=== PATIENT | female | born 1990 | race Caucasian/White ===

== ENCOUNTER 2018-08-07 14:36 | Day surgery (SDC) | payer BC ==
[2018-08-07 15:22] VITALS: BMI 25.3
[2018-08-07] MEDS ORDERED: Lactated Ringer's 1,000 ML IV SCH (15:45)
--- NOTE | 2018-08-07 15:45 | PDOC.EVN ---
Event Note - Event Note Event Note: H&P dictated as well
--- NOTE | 2018-08-07 16:40 | HP ---
TIME OF EVALUATION: 1520 hours. LOCATION: Labor and Delivery triage in bed A. CHIEF COMPLAINT: Shortness of breath. This is a patient of Dr. Lora. The patient has a full H and P that is hand written in the physical chart and so this dictation is actually ancillary/secondary. The patient was not evaluated in the ER since they are at capacity, so no tests have been done for shortness of breath as of yet. HISTORY OF PRESENT ILLNESS: This is a 28-year-old G2, P0, with an elective AB x1 in the past with an EDC of 09/14, makes her now 34 weeks and 4 days, here for shortness of breath x3 weeks. She states that she had a cold in the past and that her shortness of breath has increased since that time. She denies fever or sputum production. She denies chills or bloody hemoptysis. She denies sick contacts or trauma. REVIEW OF SYSTEMS: Complete review of systems was checked and is otherwise negative unless specified in the HPI. As part of review of systems, I checked when her last exam was and she was last checked by Dr. Lora on when the patient complained of similar symptoms. Dr. Lora checked a pulse ox and it was greater than 97%. She was told that symptoms were likely attributable to normal . No testing was done at that time. PAST MEDICAL HISTORY: The patient has a history of supraventricular tachycardia at age 23, but this was treated in [place] with a "surgery." She has had no symptoms since and does not follow up with Cardiology for this. PAST SURGICAL HISTORY: Significant for this treatment of this arrhythmia as previously dictated. It sounds like this was an electrophysiological procedure. ALLERGIES: QUESTIONABLE ALLERGY TO CONTRAST, BUT IS UNCLEAR IF THIS IS TRUE SHE CAN EAT SHELLFISH. OB HISTORY: She is a G2, P0. MEDICATIONS: In use are vitamins. PHYSICAL EXAMINATION: VITAL SIGNS: Shows a temperature of 98.1, respiratory rate of 18, blood pressure 106/72, and a pulse of 80. GENERAL: Clinically, she is in no acute distress with respirations not labored. She is resting in bed quite comfortably. ABDOMEN: Soft and nontender. CERVICAL: Currently deferred at this time, and she does not complain of any contractions. On monitor, she has a category 1 strip with some uterine irritability. ASSESSMENT: This is a G2, P0, at 34 weeks and 4 days with likely dyspnea of . She has had this shortness of breath for weeks, so this is not acute. PLAN: 1. I have seen the patient at bedside and reviewed the following. 2. I will order a chest x-ray at screening. 3. I will order 1 L LR for conservative management. 4. Cervical check. 5. We will place pulse ox, which has been done and her pulse ox here is 99% on room air. 6. Just to make sure we are not missing any other pathology, I have ordered a bilateral lower extremity Doppler to confirm venous patency and I have explained this to the patient. Job ID: [id number]
--- NOTE | 2018-08-07 16:41 | ULT ---
BILATERAL LOWER EXTREMITY VENOUS DOPPLER ULTRASOUND EVALUATION: 08/07/18 HISTORY: Shortness of breath. Respiratory distress. Evaluate for deep venous thrombosis. Multiple longitudinal and transverse images of the right and left lower extremity venous system was o btained using a multihertz linear array transducer. Real time, color flow, and spectral waveform Dop pler analysis demonstrates no evidence of acute or old clot seen in the right or left common femoral, superficial femoral, femora profunda, popliteal, posterior tibial vein and right and left greater sa phenous veins. IMPRESSION: No evidence of right or left lower extremity deep venous thrombosis. POS: KIRSTEN
--- NOTE | 2018-08-07 16:51 | PDOC.EVN ---
Event Note - Event Note Event Note: DVT doppler eval: negative bilaterally LE
--- NOTE | 2018-08-07 17:35 | RAD ---
EXAM: CHEST ONE VIEW HISTORY: Shortness of breath COMPARISON: 07/25/2010 FINDINGS: The cardiac silhouette and pulmonary vasculature is within normal limits. The lungs are clear. The os seous structures are intact. Chest is stable from prior study. IMPRESSION: No acute cardiopulmonary process.
--- NOTE | 2018-08-07 18:17 | PDOC.EVN ---
Event Note - Event Note Event Note: CXR negative
--- NOTE | 2018-08-07 18:54 | PDOC.EVN ---
Event Note - Event Note Event Note: All work up is negative and clinically, patient is in NAD Pulse Ox 99% on RA CXR neg Bilaterally, lower extremity doppler is neg OK for outpatient care DX: discomforts of preg/dyspnea of
== END 2018-08-07 19:04 | disposition home or self-care (01) ==
LOC: L&D/OP 14:36
PROVIDERS: ATTEND Student in an Organized Health Care Education/Training Program
DX: O99.89 Other specified diseases and conditions complicating pregnancy, childbirth and the puerperium (principal); R06.02 Shortness of breath; Z3A.34 34 weeks gestation of pregnancy; Z79.899 Other long term (current) drug therapy
CPT/HCPCS: 71045; 93970; 96360; 96361; 99283

== ENCOUNTER 2018-08-22 13:11 | Day surgery (SDC) | payer BC ==
[2018-08-22 13:43] VITALS: BMI 26.2
--- NOTE | 2018-08-22 15:28 | PRG ---
DATE OF SERVICE: 08/22/2018 TIME OF SERVICE: 14:50. PRESENTING COMPLAINT: Contractions for 1 hour at 37 weeks. HISTORY OF PRESENT ILLNESS: Ms. Anand is a 28-year-old 2, para 0, who sees Dr. Hannah Lora at [facility]. She has an ANTHONY of 09/14. She reports she has been having contractions for approximately an hour. She denies rupture of membranes, vaginal bleeding, and reports an active fetus. 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 Blood type O positive, antibody negative. Pap negative. Rubella immune. VDRL nonreactive. Hepatitis B, GC, chlamydia negative. Group B strep negative. The patient has had an uncomplicated antepartum course. PAST MEDICAL HISTORY: History of cardiac ablation. PAST SURGICAL HISTORY: Cardiac ablation procedure. ALLERGIES: IODINATED CONTRAST. MEDICATIONS: vitamins. SOCIAL HISTORY: Denies tobacco, alcohol, or drug abuse. FAMILY HISTORY: Noncontributory. REVIEW OF SYSTEMS: Noncontributory. PHYSICAL EXAMINATION: GENERAL: White female in no acute distress. VITAL SIGNS: Temperature 98.7, pulse 79, respirations 18, blood pressure 125/74. HEENT: Within normal limits. LUNGS: Clear to auscultation bilaterally. HEART: Regular rate and rhythm. ABDOMEN: Soft and nontender with indelible contractions. FHTs 140s. VULVA: Without lesions. VAGINA: Without discharge. CERVIX: Fingertip, soft, and posterior cephalic presentation long. EXTREMITIES: Without clubbing, cyanosis, or edema. monitoring is carried out for greater than 1 hour. Category I heart rate tracing without decelerations noted with a baseline of 130s to 140s. Contractions q.5 to 7 minutes were noted. A cervical exam was repeated after 1 hour was noted to be unchanged. IMPRESSION: Prodromal labor. No evidence of active labor. Reassuring heart rate status. PLAN: Discharge home. Keep scheduled followup on with Dr. Lora. SHELLY valencia. Job ID: [id number]
== END 2018-08-22 15:10 | disposition home health service (06) ==
LOC: L&D/OP 13:11
PROVIDERS: ATTEND Student in an Organized Health Care Education/Training Program
DX: O47.1 False labor at or after 37 completed weeks of gestation (principal); Z3A.37 37 weeks gestation of pregnancy; Z79.899 Other long term (current) drug therapy; Z98.890 Other specified postprocedural states
CPT/HCPCS: 99282

== ENCOUNTER 2018-09-12 21:00 | Inpatient (IN) | payer BC ==
[~2018-09-12 21:00] MED LIST: Bupivacaine/Epinephrine 0.25% 30 ML VIAL ONE
[2018-09-12] MEDS ORDERED: Lidocaine 1% (PF) 30 ML VIAL SC PRN (22:18)
[2018-09-12] MEDS ORDERED: Methylergonovine 0.2 MG/ML VIAL IM PRN (22:18)
[2018-09-12] MEDS ORDERED: Zolpidem Tartrate 5 MG TAB PO PRN (22:18)
[2018-09-12] MEDS ORDERED: Promethazine HCl 25 MG/ML VIAL IM PRN (22:18)
[2018-09-12] MEDS ORDERED: Ondansetron PF 4 MG/2 ML Vial IVP PRN (22:18)
[2018-09-12] MEDS ORDERED: Diphenoxylate HCl/Atropine Tablet PO PRN (22:18)
[2018-09-12] MEDS ORDERED: Acetaminophen 500 MG TAB PO PRN (22:18)
[2018-09-12] MEDS ORDERED: Ibuprofen 800 MG TAB PO PRN (22:18)
[2018-09-12] MEDS ORDERED: HYDROcodone/Acetaminophen 5/325 mg Tablet PO PRN (22:18)
[2018-09-12] MEDS ORDERED: Carboprost 250 MCG/ML AMP IM PRN (22:18)
[2018-09-12] MEDS ORDERED: NS w/ Oxytocin 10 units 500 ML IV SCH (22:30)
[2018-09-12 23:06] VITALS: BMI 26.6
[2018-09-12] MEDS: Misoprostol 100 MCG TAB VAG SCH (23:48)
[2018-09-12 23:50] LABS: Hemoglobin 11.8 g/dL (12.0-16.0); Mean Corpuscular HGB CONC 34.8 g/dL (32.0-36.0); Mean Corpuscular Hemoglobin 32.7 pg (27.0-31.0); Mean Corpuscular Volume 93.8 fL (78.0-98.0); Mean Platelet Volume 9.2 fL (7.4-10.4); Platelet Count 197 thou/uL (130-400); RBC Distribution Width 12.6 % (11.5-14.5); Red Blood Cell (RBC) Count 3.62 mill/uL (4.20-5.40); White Blood Cell (WBC) Count 12.7 thou/uL (4.8-10.8)
[2018-09-12] MEDS: Lactated Ringer's 1,000 ML IV SCH (23:52)
[2018-09-13 00:26] LABS: Syphilis Antibody Nonreactive (Nonreactive); Syphilis Antibody Index 0.03 S/CO (<1.00 Non-Reactive)
[2018-09-13 01:59] LABS: HBSAg Index 0.26 S/CO (0-0.99); Hep B Surf Ag Non-Reactive S/CO (NonReactive)
[2018-09-13] MEDS: Butorphanol Tartrate 1 MG/ML VIAL SLOW IVP PRN ×2 (02:19→04:05)
[2018-09-13] MEDS: Lactated Ringer's 1,000 ML IV SCH (04:11)
[2018-09-13] MEDS ORDERED: Fentanyl 4 mcg/Bup 0.1% Cadd 100 ML ONE (04:35)
--- NOTE | 2018-09-13 08:00 | PDOC.LDHP ---
Labor and Delivery H&P Chief complaint: scheduled induction HPI: 28yo at 39w6d by LMP for elective IOL. s/p cytotec x1 overnight and went into labor thereafter spontaneously. Current gestational age (weeks): 39 Due date: 09/14/18 Dating criteria: last menstrual period Grav: 1 Para: 0 Current complications: none Abnormal US findings: No Past Medical History: hx of SVT s/p ablation Current medications: pre-nilo vitamins Previous surgical history: other (heart ablation) Allergies/Adverse Reactions: Allergies Allergy/AdvReac Type Severity Reaction Status Date / Time No Known Allergies Allergy Verified 09/12/18 22:59 Social history: none - Physical Exam Vital signs reviewed and normal: yes General: NAD Heart: RRR Lungs: CTAB Abdomen: gravid Extremeties: no edema FHT: category 1 [place] contractions every: 3min - Vaginal Exam cm dilated: 10 Effacement: 100% Station: 3+ - OB Labs Blood type: O RH: positive Antibody Screen: negative HIV: negative RPR: negative HEPSAg: negative 1 hour GCT: negative GBS: negative Urine drug screen: negative Rubella: immune - Assessment L&D Assessment: elective induction at term - Plan Plan: admit to L&D, labor augmentation if indicated, informed consent obtained, anesthesia consult for pain management
--- NOTE | 2018-09-13 08:02 | PDOC.OPDEL ---
OB Operative/Delivery Note Delivery Dr/Surgeon: Geno Assist: n/a Pre-Delivery Diagnosis: elective induction Procedure/Post Delivery Dx: spontaneous vaginal delivery Weeks gestation: 39 Anesthesia: epidural - Findings A Sex: male - 1 min: 9 - 5 min: 9 - Additional Findings/Plan Placenta delivered: spontaneous Repaired Obstetrical Laceration: 1st degree (repaired with 2-0 vicryl for hemostasis) Estimated blood loss: 50cc Post delivery plan: routine recovery
[2018-09-13] MEDS: NS / Oxytocin 40 units/1000ml 1,000 ML IV PRN ×2 (09:03→09:04)
[2018-09-13] MEDS ORDERED: diphenhydrAMINE 25 MG CAP PO PRN (09:34)
[2018-09-13] MEDS ORDERED: Benzocaine-Menthol 82.5 ML CAN TOP PRN (09:34)
[2018-09-13] MEDS ORDERED: NS / Oxytocin 40 units/1000ml 1,000 ML IV SCH (09:34)
[2018-09-13] MEDS ORDERED: Milk Of Magnesia 30 ML UDCUP PO PRN (09:34)
[2018-09-13] MEDS ORDERED: Preparation H Ointment 28 GM TUBE PR PRN (09:34)
[2018-09-13] MEDS ORDERED: Bisacodyl 10 MG SUPP PR PRN (09:34)
[2018-09-13] MEDS ORDERED: Ondansetron PF 4 MG/2 ML Vial IVP PRN (09:34)
[2018-09-13] MEDS ORDERED: HYDROcodone/Acetaminophen 5/325 mg Tablet PO PRN (09:34)
[2018-09-13] MEDS ORDERED: Lanolin Ointment 7 GM TUBE TOP PRN (09:34)
[2018-09-13] MEDS ORDERED: Adacel (T-DAP) 0.5 ML SYRINGE IM ONE (09:34)
[2018-09-13] MEDS ORDERED: Prenatal Vitamin 1 TAB PO SCH (09:45)
[2018-09-13] MEDS ORDERED: Ferrous Sulfate 325 MG TAB PO SCH (09:45)
[2018-09-13] MEDS ORDERED: Docusate Calcium (SURFAK) 240 MG CAP PO SCH (09:45)
[2018-09-13] MEDS: Misoprostol 100 MCG TAB VAG SCH (11:05)
[2018-09-13] MEDS: Ibuprofen 800 MG TAB PO SCH ×2 (14:42→21:15)
[2018-09-13] MEDS: Ferrous Sulfate 325 MG TAB PO SCH (17:16)
[2018-09-13] MEDS: Docusate Calcium (SURFAK) 240 MG CAP PO SCH (21:15)
[2018-09-14] MEDS: HYDROcodone/Acetaminophen 5/325 mg Tablet PO PRN ×2 (01:57→14:14)
[2018-09-14] MEDS: Ibuprofen 800 MG TAB PO SCH ×3 (05:16→21:12)
--- NOTE | 2018-09-14 08:10 | PDOC.PP ---
Post Progress Note Post Day #: 1 Subjective: No concerns. Breast feeding. Minimal lochia and pain. PO intake tolerated: yes Flatus: yes Ambulation: yes Vital Signs (12 hours) Temp Pulse Resp BP Pulse Ox 09/14/18 07:43 97.7 F 68 20 119/77 98 09/14/18 05:15 97.8 F 60 16 115/61 09/14/18 02:00 97.9 F 60 16 113/75 09/13/18 20:25 98.3 F 63 18 121/75 97 Weight Weight 170 lb - Physical Examination General: NAD Cardiovascular: RRR Respiratory: non-labored breathing Abdominal: no distention, appropriately TTP Fundus firm & at: below umbilicus Extremities: negative homans (B) Neurological: no gross focal deficits Psychiatric: A&Ox3, normal affect Result Diagrams: 09/12/18 23:37 Additional Labs: Post Labs Blood Type O POSITIVE 09/13/18 00:24 Hep Bs Antigen Non-Reactive S/CO (NonReactive) 09/12/18 23:37 (1) Vaginal delivery Code(s): O80 - ENCOUNTER FOR FULL-TERM UNCOMPLICATED DELIVERY Status: Acute - Assessment/Plan PPD1 VSSAF Continue PP care. Plan for d/c tomorrow.
[2018-09-14] MEDS: Ferrous Sulfate 325 MG TAB PO SCH ×2 (09:28→16:09)
[2018-09-14] MEDS: Prenatal Vitamin 1 TAB PO SCH (09:29)
[2018-09-14] MEDS: Docusate Calcium (SURFAK) 240 MG CAP PO SCH ×2 (09:29→21:12)
[2018-09-15] MEDS: Ibuprofen 800 MG TAB PO SCH (04:54)
[2018-09-15] MEDS: HYDROcodone/Acetaminophen 5/325 mg Tablet PO PRN (04:54)
[2018-09-15 07:42] VITALS: TEMP 98.2
[2018-09-15] MEDS: Ferrous Sulfate 325 MG TAB PO SCH (08:02)
[2018-09-15] MEDS: Docusate Calcium (SURFAK) 240 MG CAP PO SCH (08:03)
[2018-09-15] MEDS: Prenatal Vitamin 1 TAB PO SCH (08:04)
--- NOTE | 2018-09-15 08:05 | PDOC.PP ---
Post Progress Note Post Day #: 2 PO intake tolerated: yes Flatus: yes Ambulation: yes Vital Signs (12 hours) Temp Pulse Resp BP Pulse Ox 09/15/18 00:00 98.2 F 61 18 106/67 09/14/18 20:45 97.7 F 74 18 107/64 98 Weight Weight 170 lb - Physical Examination General: NAD Cardiovascular: RRR Respiratory: non-labored breathing Abdominal: no distention, appropriately TTP Fundus firm & at: umb-2 Skin: no rash Neurological: no gross focal deficits Psychiatric: normal affect Result Diagrams: 09/12/18 23:37 Additional Labs: Post Labs Blood Type O POSITIVE 09/13/18 00:24 Hep Bs Antigen Non-Reactive S/CO (NonReactive) 09/12/18 23:37 - Assessment/Plan PPD2 s/p TSVD VSSAF Doing well, , lochia appropriate Rh pos RImm DC home FU 6w
[2018-09-15 08:19] VITALS: BP 103/59
== END 2018-09-15 12:45 | disposition home or self-care (01) | DRG 807 ==
LOC: L&D 21:15 → 3SW 09-13 10:58
PROVIDERS: ADMIT Student in an Organized Health Care Education/Training Program; ATTEND Student in an Organized Health Care Education/Training Program
PROC: 10E0XZZ Delivery of Products of Conception, External Approach (ICD-10-PCS; principal; 2018-09-13)
PROC: 0HQ9XZZ Repair Perineum Skin, External Approach (ICD-10-PCS; 2018-09-13)
PROC: 3E0P7VZ Introduction of Hormone into Female Reproductive, Via Natural or Artificial Opening (ICD-10-PCS; 2018-09-13)
DX: O70.0 First degree perineal laceration during delivery (principal); Z37.0 Single live birth; Z3A.39 39 weeks gestation of pregnancy
CPT/HCPCS: 36415; 51702; 85027; 86780; 86850; 86900; 86901; 87340; J0595; J2405